=== PATIENT | female | born 1970 | race Caucasian/White ===

== ENCOUNTER → 2022-04-22 | Outpatient (CLI) | payer OTHER ==
--- NOTE | 2022-04-24 07:53 | XR ---
EXAMINATION TYPE: XR chest 2V DATE OF EXAM: 04/22/2022 COMPARISON: NONE HISTORY: Shortness of breath TECHNIQUE: Frontal and lateral views of the chest are obtained. FINDINGS: Scattered senescent parenchymal changes noted. No evidence for infiltrate. No evidence for atelectasis. There is evidence of cardiomegaly with pulmonary venous congestion. No overt congestive failure. Ster notomy wires are in place. Mediastinal structures are stable and grossly unremarkable. No evidence for hilar prominence. Degenerative changes dorsal spine. IMPRESSION: 1. There is evidence of cardiomegaly with pulmonary venous congestion. No overt congestive failure.
== END | disposition home or self-care (01) ==
LOC: RADXRMAIN 13:31
PROVIDERS: ATTEND Family Medicine
DX: I51.7 Cardiomegaly (principal); R05.3 Chronic cough
CPT/HCPCS: 71046

== ENCOUNTER → 2022-05-06 | Outpatient (CLI) | payer OTHER ==
--- NOTE | 2022-05-06 16:56 | CA ---
Transthoracic Echo Report Name: Shanta Owens Age: 52 Gender: F : 1970 Exam Date: 05/06/2022 14:40 Exam Location: [facility] Ht (in): 68 Wt (lb): 314 Ordering Physician: Alexis Millan DO Attending/Referring Phys: In Store Marketer Salina Morrison RDCS Procedure CPT: Indications: I51.7 Cardiomegaly Cardiac Hx: Technical Quality: Technically difficult study Contrast 1: Lumason Total Dose (mL): 4 Contrast 2: Total Dose (mL): MEASUREMENTS (Male / Female) Normal Values 2D ECHO LV Diastolic Diameter PLAX 5.6 cm 4.2 - 5.9 / 3.9 - 5.3 cm LV Systolic Diameter PLAX 3.4 cm IVS Diastolic Thickness 1.0 cm 0.6 - 1.0 / 0.6 - 0.9 cm LVPW Diastolic Thickness 1.0 cm 0.6 - 1.0 / 0.6 - 0.9 cm LV Relative Wall Thickness 0.3 RV Internal Dim ED PLAX 3.3 cm LA Systolic Diameter LX 3.5 cm 3.0 - 4.0 / 2.7 - 3.8 cm M-MODE Aortic Root Diameter MM 3.3 cm MV E Point Septal Separation 0.3 cm AV Cusp Separation MM 2.5 cm DOPPLER AV Peak Velocity 190.0 cm/s AV Peak Gradient 14.4 mmHg AV Mean Velocity 132.3 cm/s AV Mean Gradient 7.9 mmHg AV Velocity Time Integral 43.9 cm MV Area PHT 3.9 cm??? Mitral E Point Velocity 127.1 cm/s Mitral A Point Velocity 101.5 cm/s Mitral E to A Ratio 1.3 MV Deceleration Time 193.9 ms TR Peak Velocity 229.0 cm/s TR Peak Gradient 21.0 mmHg Right Ventricular Systolic Press 25.7 mmHg FINDINGS Left Ventricle Left ventricular ejection fraction is estimated at 50-55 %. Mildly increased left ventricular diastolic diameter. Left ventricular wall thickness normal. Right Ventricle Mild right ventricular dilatation. Right ventricular systolic pressure within normal limits. Right Atrium Normal right atrial size. Left Atrium Normal left atrial size. No evidence for an atrial septal defect. Mitral Valve Structurally normal mitral valve. No mitral stenosis, regurgitation or prolapse. Aortic Valve Trileaflet aortic valve. No aortic valve stenosis or regurgitation. Mild gradient on AOV Tricuspid Valve Structurally normal tricuspid valve. Trace to mild tricuspid regurgitation. Pulmonic Valve Pulmonic valve not well visualized. Pericardium Normal pericardium. No pericardial effusion. Aorta Normal size aortic root and proximal ascending aorta. CONCLUSIONS Normal left ventricular systolic function with a mildly dilated left ventricle Mildly dilated right ventricle No significant valvular heart disease Previewed by: Dr. Nick Krueger MD (Electronically Signed) Final Date: 06 May 2022 16:55
== END | disposition home or self-care (01) ==
LOC: RADECHMAIN 14:36
PROVIDERS: ATTEND Family Medicine
DX: I51.7 Cardiomegaly (principal)
CPT/HCPCS: 93306

== ENCOUNTER → 2022-08-12 | Outpatient (CLI) | payer OTHER ==
--- NOTE | 2022-08-12 16:25 | P.SLEEP ---
History of Present Illness DATE: 08/12/2022 CONSULTATION/NEW PATIENT EVALUATION HISTORY OF PRESENT ILLNESS/SLEEP-WAKE EVALUATION: 52-year-old lady had been e valuated in the sleep center for obstructive sleep apnea hypopnea syndrome. Patient has history of obstructive sleep apnea for about 20 years. Results of previous sleep studies are not available. Patient CPAP unit is old. SLEEP SCHEDULE: Usually sleep schedule on weekdays from 10 PM to 7 AM, on weekend from 11 PM to 9 AM. FALLING ASLEEP: Sometimes patient has problems with falling asleep, has TV set in bedroom. DURING SLEEP: Patient wakes up from sleep once while using her CPAP. No history of hypnogogical hallucinations, sleep paralysis, or cataplexy. DURING THE DAY/WAKE STATE: Patient feels sleepiness during the day. [place] sleepiness scale is 6. Patient takes 1 nap at around 2 PM on weekends. PAST MEDICAL HISTORY: Depression, anxiety, acid reflux, hypothyroidism, ALLERGY, bronchitis. PAST SURGICAL HISTORY: Closing of arterial septal defect, tubal ligation. MEDICATIONS: Zoloft 100 mg once a day, rosuvastatin 5 mg once a day, omeprazole 20 mg once a day, cetirizine 10 mg once a day. SOCIAL HISTORY: Negative for smoking, alcohol consumption occasional. FAMILY HISTORY: Heart problems, stroke, snoring, cancer. REVIEW OF SYSTEMS: Snoring, awakenings from sleep. No fevers. No double vision. No recent chest pain. No shortness of breath. No abdominal pain. No bleeding episodes. No blood in urine. No seizure episodes. PHYSICAL EXAMINATION: GENERAL: A pleasant patient without any distress. VITAL SIGNS: BP 116/79, HR 75, RR 18, weight 320.0 pounds, height 5 foot 7-1/2 inches, body mass index 49.3. HEENT: PERRLA, EOMI. Evaluation of oropharynx showed tongue protrudes midline, low position of soft palate Mallampati 3. NECK: Supple. No JVD. Thyroid is not palpable. 18 inches in circumference. LUNGS: Clear to percussion and to auscultation. Good air exchange. No wheezing or rhonchi. HEART: S1, S2 regular. No murmurs, gallops or rubs. ABDOMEN: Soft and nontender. Bowel sounds are present. No organomegaly appreciated. Obese. EXTREMITIES: No clubbing or cyanosis. LEVEL GLASS FORMING MACHINE OPERATOR: Awake, alert, and oriented x3. Cranial nerves 2 to 7 intact. There is no fasciculation or atrophy noted. No focal deficits observed. ASSESSMENT: 1. Obstructive sleep apnea-hypopnea syndrome for about 20 years. Results of sleep studies are not available. Low position of soft palate Mallampati 3, wide neck 18 inches in circumference. Obstructive sleep apnea hypopnea syndrome. 2. Obesity body mass index 49.3. 3. Depression. 4. Anxiety. 5 acid reflux. 6 . ALLERGY, hayfever. 7. Status post surgical correction of atrial septal defect. 8. Status post tubal ligation. 9 . Hyperlipidemia. PLAN: 1. Polysomnography for evaluation of patient's breathing during sleep at the present time. Results of previous sleep studies are not available. 2. CPAP/BiPAP titration if sleep study confirms obstructive sleep apnea- hypopnea syndrome. 3. Preferable position during sleep on the side. 4. No driving if patient feels any sleepiness. Patient is aware of civil and criminal liability for unsafe driving. 5. Sleep hygiene with regular sleep time for at least 7.5-8 hours. 6. Watching and aggressive losing weight. 7. Patient should get new PAP equipment after all necessary testing. Thank you very much for referring this patient for consultation. Sincerely, Jude Seo MD, PhD, FAASM. Diplomat of [place] [employer], Sleep Medicine Board by [place] [employer] [place] [employer] Psychiatric Assistant of [facility] [place] Sleep Note - Sleep Note Sleep Note: Temperature: Pulse Rate: Respiratory Rate: Blood Pressure: SpO2: Height: Weight: BMI: Neck Circumference:
== END ==
LOC: SLEEP 14:33
PROVIDERS: ATTEND Internal Medicine
DX: G47.33 Obstructive sleep apnea (adult) (pediatric) (principal); E66.9 Obesity, unspecified; Z68.42 Body mass index [BMI] 45.0-49.9, adult; F32.A Depression, unspecified; F41.9 Anxiety disorder, unspecified; K21.9 Gastro-esophageal reflux disease without esophagitis; E78.5 Hyperlipidemia, unspecified; Z98.890 Other specified postprocedural states; Z98.51 Tubal ligation status
CPT/HCPCS: 99211

== ENCOUNTER → 2023-03-31 | Outpatient (CLI) | payer OTHER ==
--- NOTE | 2023-03-31 13:40 | P.PN ---
Subjective DATE: 03/31/2023 FOLLOW UP VISIT. Patient with obstructive sleep apnea hypopnea syndrome return to sleep center for follow-up visit. Recently patient had sleep study which documented obstructive sleep apnea hypopnea syndrome. Patient was initiated on PAP therapy and today is first visit after treatment was started. Patient was able to use PAP equipment every night for the whole night. The patient does not have significant problems with the mask, PAP pressure and humidification. [place] sleepiness scale is 4, which is normal. I checked information from PAP unit. PAP unit pressure 7-10, average 9.9 cm H2O. Usage is 97 % for more then 4 hours, average 8.25 hours per night. Leak is 22.5 l/m, which is in acceptable range. Apnea Hypopnea Index is to 0.1, which is normal. MEDICATIONS:1. Zoloft 100 mg once a day 2. , Rosuvastatin 5 mg once a day 3. Omeprazole 20 mg once a day 4. Cetirizine 10 mg once a day During physical exam: GENERAL: A pleasant patient without any distress. VITAL SIGNS: BP 147/93, HR 69, RR 16 , weight 318.4, temperature 98.3, oxygen saturation at room air 97% . HEENT: PERRLA, EOMI.low position of soft palate, Mallapati 3 . NECK: Supple. No JVD. LUNGS: Clear to percussion and to auscultation. Good air exchange. No wheezing or rhonchi. HEART: S1, S2 regular. ABDOMEN: Soft and nontender.[] EXTREMITIES: No clubbing or cyanosis. FIELD LIABILITY GENERALIST: Awake, alert, and oriented x3. No focal deficit. Impressions: 1. Obstructive sleep apnea-hypopnea syndrome. Patient demonstrated great compliance with treatment, benefiting from treatment. 2. Obesity, body mass index around 49. 3. Depression. 4. Anxiety. 5. Acid reflux. 6. History of ALLERGY and hay fever. 7. Status post surgical treatment of atrial septal defect. 8. Hyperlipidemia. Plan: 1. Continue using PAP equipment every night for the whole night. 2. To change air filter at least 1-2 times per month. 3. PAP unit should stay lower then position of the head. 4. Advised patient to remove all remaining water from humidifier canister daily and make it dry after each usage. Refill canister with fresh distilled water before each usage. 5. Sleep hygiene with regular time in bed for at least 8 hours. 6. Precautions related to driving. No driving if feel any sleepiness. 7. I will maintain prescription for PAP supplies including mask, tube, filters. 8. Follow up visit in 6 months or earlier if patient has any problems. 9. Watching and losing weight. Thank you very much for allowing me to participate in the management of your patient. Jude Soe MD, PhD, FAASM. Diplomat of [place] Board [employer], Sleep Medicine Board by [place] [employer] Testing And Regulating Chief of [facility] [place]
== END ==
LOC: 3 N SLEEP 13:06
PROVIDERS: ATTEND Internal Medicine
DX: G47.33 Obstructive sleep apnea (adult) (pediatric) (principal); E66.9 Obesity, unspecified; E78.5 Hyperlipidemia, unspecified; F32.A Depression, unspecified; F41.9 Anxiety disorder, unspecified; K21.9 Gastro-esophageal reflux disease without esophagitis; Z68.42 Body mass index [BMI] 45.0-49.9, adult; Z79.899 Other long term (current) drug therapy; Z99.89 Dependence on other enabling machines and devices; Z98.890 Other specified postprocedural states
CPT/HCPCS: 99212

== ENCOUNTER → 2023-10-07 | Outpatient (CLI) | payer OTHER ==
--- NOTE | 2023-10-07 11:28 | P.PN ---
Subjective DATE: 10/07/2023 FOLLOW UP VISIT. Patient with obstructive sleep apnea hypopnea syndrome return to sleep center for follow-up visit. Information from previous visit have been reviewed. Patient is using PAP equipment every night for the whole night, getting PAP supplies in time. The patient does not have significant problems with the mask, PAP unit and humidification. [place] sleepiness scale is 4. I checked information from PAP unit. PAP unit pressure 7-10, average 10 cm H2O. Usage is 100 % for more then 4 hours, average 8 hours per night. Leak is 24 l/m, which is in acceptable range. Apnea Hypopnea Index is 4.8, which is borderline and increased comparing to the previous visit. Patient never changed her mask. MEDICATIONS:1. Omeprazole 20 mg once a day 2. Rosuvastatin 5 mg once a day 3. Zyrtec 10 mg once a day 4. Sertraline 100 mg once a day 5. Pulmicort During physical exam: GENERAL: A pleasant patient without any distress. VITAL SIGNS: BP 129/79, HR 85, RR 12 , weight 330.6, temperature 98.3, oxygen saturation at room air 97 % . HEENT: PERRLA, EOMI.low position of soft palate, Mallapati 3 . NECK: Supple. No JVD. LUNGS: Clear to percussion and to auscultation. Good air exchange. No wheezing or rhonchi. HEART: S1, S2 regular. ABDOMEN: Soft and nontender. Obese EXTREMITIES: No clubbing or cyanosis. LABOR DELIVERY RN: Awake, alert, and oriented x3. No focal deficit. I increased pressure in CPAP unit to the range 7-12 cm of water. Impressions: 1. Obstructive sleep apnea-hypopnea syndrome. Patient demonstrated great compliance with treatment, benefiting from treatment. 2. Obesity, patient increased weight on 12 pounds, BMI 50.1. 3. History of depression. 4. History of anxiety. 5. Acid reflux. 6. Hyperlipidemia. 7. History of ALLERGY and hay fever. 8. Status post surgical treatment for atrial septal defect. Plan: 1. Continue using PAP equipment every night for the whole night. Patient replace her mask today. 2. To change air filter at least 1-2 times per month. 3. PAP unit should stay lower then position of the head. 4. Advised patient to remove all remaining water from humidifier canister daily and make it dry after each usage. Refill canister with fresh distilled water before each usage. 5. Sleep hygiene with regular time in bed for at least 8 hours. 6. Precautions related to driving. No driving if feel any sleepiness. 7. I will maintain prescription for PAP supplies including mask, tube, filters. 8. Follow up visit in 6 months or earlier if patient has any problems. 9. Watching and losing weight. Thank you very much for allowing me to participate in the management of your patient. Jude Seo MD, PhD, FAASM. Diplomat of [place] [employer] Medicine, Sleep Medicine Board by [place] [employer] Medicine Contact Centre Supervisor of [facility] [place]
== END ==
LOC: 3 N SLEEP 10:51
PROVIDERS: ATTEND Internal Medicine
DX: G47.33 Obstructive sleep apnea (adult) (pediatric) (principal); E66.9 Obesity, unspecified; F32.A Depression, unspecified; F41.9 Anxiety disorder, unspecified; E78.5 Hyperlipidemia, unspecified; K21.9 Gastro-esophageal reflux disease without esophagitis; Z98.890 Other specified postprocedural states; Z99.89 Dependence on other enabling machines and devices; Z86.19 Personal history of other infectious and parasitic diseases; Z68.43 Body mass index [BMI] 50.0-59.9, adult; Z91.09 Other allergy status, other than to drugs and biological substances
CPT/HCPCS: 99212

== ENCOUNTER → 2024-04-26 | Outpatient (CLI) | payer OTHER ==
[2024-04-26 15:18] VITALS: BP 118/81; PULSE 67; RESP 20; TEMP 98.4
--- NOTE | 2024-04-26 15:44 | P.PROGSL ---
Subjective DATE: 04/26/2024 FOLLOW UP VISIT. Patient with obstructive sleep apnea hypopnea syndrome return to sleep center for follow-up visit. Information from previous visit have been reviewed. Patient is using PAP equipment every night for the whole night, getting PAP supplies in time. The patient does not have significant problems with the mask, PAP unit and humidification. [place] sleepiness scale is 5, which is normal. I checked information from PAP unit. PAP unit pressure 7-12, average 11.6 cm H2O. Usage is 100% for more then 4 hours, average 8.25 hours per night. Leak is significantly increased to 44.0 l/m. Apnea Hypopnea Index is 2.6, which is normal. MEDICATIONS sertraline 100 mg once a day, rosuvastatin 5 mg once a day, omepraz ole 20 mg once a day. During physical exam: GENERAL: A pleasant patient without any distress. VITAL SIGNS: Please see below, weight is 325.8 lbs. HEENT: PERRLA, EOMI.low position of soft palate, Mallapati 3. NECK: Supple. No JVD. LUNGS: Clear to percussion and to auscultation. Good air exchange. No wheezing or rhonchi. HEART: S1, S2 regular. ABDOMEN: Soft and nontender, obese EXTREMITIES: No clubbing or cyanosis. STOCK HANGER: Awake, alert, and oriented x3. No focal deficit. Impressions: 1. Obstructive sleep apnea-hypopnea syndrome. Patient demonstrated great compliance with treatment, benefiting from treatment. 2. Obesity, BMI 50.1, patient lost 5 pounds comparing with previous visit. 3. History of anxiety. 4. History of depression. 5. Status post surgical treatment for atrial septal defect. 6. Hyperlipidemia. 7. Acid reflux. 8. History of allergies and hayfever. Plan: 1. Continue using PAP equipment every night for the whole night. 2. Sleep hygiene with regular time in bed for at least 7.5-8 hours 3. PAP unit should stay lower then position of the head. 4. Advised patient to remove all remaining water from humidifier canister daily and make it dry after each usage. Refill canister with fresh distilled water before each usage. 5. Watching and losing weight. 6. Precautions related to driving. No driving if feel any sleepiness. 7. I will maintain prescription for PAP supplies including mask, tube, filters. 8. Follow up visit in 6 months or earlier if patient has any problems. Thank you very much for allowing me to participate in the management of your patient. Jude Seo MD, PhD, FAASM. Diplomat of [place] [employer] Medicine, Sleep Medicine Board by [place] [employer] Medicine Customer Service Dispatcher of [facility] [place] Objective - Vital Signs Vital Signs: Vital Signs Temp 98.4 F 04/26/24 15:17 Pulse 67 04/26/24 15:17 Resp 20 04/26/24 15:17 BP 118/81 04/26/24 15:17 Pulse Ox 96 04/26/24 15:17 FiO2 Intake & Output 04/25/24 04/26/24 04/26/24 18:59 06:59 18:59 Weight 147.644 kg
== END ==
LOC: 3 N SLEEP 15:02
PROVIDERS: ATTEND Internal Medicine
CPT/HCPCS: 99212

== ENCOUNTER → 2024-05-02 | Outpatient (CLI) | payer OTHER | LOC: CPPFTMAIN 10:32 | PROVIDERS: ATTEND Family Medicine | DX: R05.3 Chronic cough (principal) | CPT/HCPCS: 94060; 94726; 94729 ==

== ENCOUNTER → 2024-11-22 | Outpatient (CLI) | payer OTHER ==
[2024-11-22 11:59] VITALS: BP 136/92; PULSE 71; RESP 16; TEMP 97.9
--- NOTE | 2024-11-22 12:23 | P.PROGSL ---
Subjective DATE: 11/22/2024 FOLLOW UP VISIT. Patient with obstructive sleep apnea hypopnea syndrome return to sleep center for follow-up visit. Information from previous visit have been reviewed. Patient is using PAP equipment every night for the whole night, getting PAP supplies in time. The patient does not have significant problems with the mask, PAP unit and humidification. [place] sleepiness scale is 5, which is normal. I checked information from PAP unit. PAP unit pressure 7-12, average 11.7 cm H2O. Usage is 100% for more then 4 hours, average 7.5 hours per night. Leak is increased to 34.6 l/m. Apnea Hypopnea Index is 1.6, which is normal. MEDICATIONS have been reviewed, please see below. During physical exam: GENERAL: A pleasant patient without any distress. VITAL SIGNS: Please see below, weight is 322.2 lbs. HEENT: PERRLA, EOMI.low position of soft palate, Mallapati 3. NECK: Supple. No JVD. LUNGS: Clear to percussion and to auscultation. Good air exchange. No wheezing or rhonchi. HEART: S1, S2 regular. ABDOMEN: Soft and nontender. Obese EXTREMITIES: No clubbing or cyanosis. CENTER HUMAN RESOURCES MANAGER: Awake, alert, and oriented x3. No focal deficit. Impressions: 1. Obstructive sleep apnea-hypopnea syndrome. Patient demonstrated great compliance with treatment, benefiting from treatment. 2. Obesity, BMI 50.4, patient lost 3 pounds comparing with previous visit. 3. History of anxiety. 4. History of depression. 5. Status post surgical treatment for atrial septal defect. 6. Allergy to cats and history of hayfever. 7. Hyperlipidemia. 8. Acid reflux. Plan: 1. Continue using PAP equipment every night for the whole night. 2. Sleep hygiene with regular time in bed for at least 7.5-8 hours 3. PAP unit should stay lower then position of the head. 4. Advised patient to remove all remaining water from humidifier canister daily and make it dry after each usage. Refill canister with fresh distilled water before each usage. 5. Watching and continue losing weight. 6. Precautions related to driving. No driving if feel any sleepiness. 7. I will maintain prescription for PAP supplies including mask, tube, filters. 8. Follow up visit in 8 months or earlier if patient has any problems. Thank you very much for allowing me to participate in the management of your patient. Jude Seo MD, PhD, FAASM. Diplomat of [place] [employer] Sleep Medicine, Sleep Medicine Board by [place] [employer] Medicine Fisher Sponge Hooking of [facility] [place] Objective - Vital Signs Vital Signs: Vital Signs Temp 97.9 F 11/22/24 11:57 Pulse 71 11/22/24 11:57 Resp 16 11/22/24 11:57 BP 136/92 11/22/24 11:57 Pulse Ox 95 11/22/24 11:57 FiO2 Intake & Output 11/21/24 11/22/24 11/22/24 18:59 06:59 18:59 Weight 146.113 kg Home Medications: Home Medications Medication Instructions Recorded Confirmed Type Cetirizine HCl [Zyrtec] 10 mg PO DAILY 11/22/24 11/22/24 History Lisdexamfetamine Dimesylate 70 mg PO DAILY 11/22/24 11/22/24 History Omeprazole 20 mg PO DAILY 11/22/24 11/22/24 History Rosuvastatin [Crestor] 5 mg PO DAILY 11/22/24 11/22/24 History Sertraline [Zoloft] 100 mg PO DAILY 11/22/24 11/22/24 History
== END ==
LOC: 3 N SLEEP 11:40
PROVIDERS: ATTEND Internal Medicine
DX: G47.33 Obstructive sleep apnea (adult) (pediatric) (principal); E66.01 Morbid (severe) obesity due to excess calories; F41.9 Anxiety disorder, unspecified; E78.5 Hyperlipidemia, unspecified; K21.9 Gastro-esophageal reflux disease without esophagitis; F32.A Depression, unspecified; Q21.10 Atrial septal defect, unspecified; J30.81 Allergic rhinitis due to animal (cat) (dog) hair and dander; Z68.43 Body mass index [BMI] 50.0-59.9, adult
CPT/HCPCS: 99212

== ENCOUNTER → 2025-02-23 | Day surgery (SDC) | payer OTHER ==
[2025-02-22 10:32] VITALS: BMI 48.9
[~2025-02-23] MED LIST: PROPOFOL 10 MG/ML 20 ML VIAL IV ONE
[2025-02-23 11:58] VITALS: RESP 16
[2025-02-23] MEDS: IV FLUID CONTINUATION 1,000 ML IV ONE (12:03)
[2025-02-23] MEDS: LACTATED RINGERS 1,000 ML IV SCH (12:05)
[2025-02-23 12:07] VITALS: TEMP 97.6
--- NOTE | 2025-02-23 13:02 | P.PCN ---
Date of Procedure: 02/23/25 Procedure(s) Performed: BRIEF HISTORY: Patient is a 54-year-old pleasant white female scheduled for an elective colonoscopy as a part of screening for colon cancer. PROCEDURE PERFORMED: Colonoscopy with biopsy. PREOPERATIVE DIAGNOSIS: Screening for colon cancer. IV sedation per Anesthesia. PROCEDURE: After informed consent was obtained, the patient, was brought into the endoscopy unit. IV sedation was administered by Anesthesia under continuous monitoring. Digital rectal examination was normal. Initially the Olympus CF-160 flexible video colonoscope was then inserted in the rectum, gradually advanced into the cecum without any difficulty. Careful examination was performed as the scope was gradually being withdrawn. Ileocecal valve and the appendiceal orifice were visualized and appeared normal. Prep was excellent. Mucosa of the cecum, ascending colon, transverse colon, descending colon, appeared normal. In the proximal sigmoid colon there was a 4 mm sessile polyp removed by cold biopsy. Rest of the sigmoid colon, and rectum appeared normal. Retroflexion was performed in the rectum and no lesions were seen. The patient tolerated the procedure well. IMPRESSION: 4 mm sigmoid colon polyp status post cold biopsy. Rest of the colon appeared normal. RECOMMENDATIONS: Findings of this examination were discussed with the patient as well as the family.. She was advised to follow-up with the biopsy results. If the biopsy was adenomatous can have repeat colonoscopy in 5 years.
[2025-02-23 13:18] VITALS: BP 127/65; PULSE 62
== END ==
LOC: ORWHC2ENDO 10:45
PROVIDERS: ATTEND Internal Medicine Gastroenterology
DX: Z12.11 Encounter for screening for malignant neoplasm of colon (principal); D12.5 Benign neoplasm of sigmoid colon; K21.9 Gastro-esophageal reflux disease without esophagitis; J45.909 Unspecified asthma, uncomplicated; E78.5 Hyperlipidemia, unspecified; E66.9 Obesity, unspecified; F41.9 Anxiety disorder, unspecified; F32.A Depression, unspecified; G47.33 Obstructive sleep apnea (adult) (pediatric); Q21.10 Atrial septal defect, unspecified; Z68.42 Body mass index [BMI] 45.0-49.9, adult; Z88.7 Allergy status to serum and vaccine; Z99.89 Dependence on other enabling machines and devices; Z79.899 Other long term (current) drug therapy
CPT/HCPCS: 88305; 45380; J2704

== ENCOUNTER → 2025-03-05 | Outpatient (CLI) | payer OTHER ==
--- NOTE | 2025-03-05 08:00 | MM ---
Reason for Exam: Screening (asymptomatic). Last mammogram was performed 2 year(s) and 5 month(s) ago. Patient History: Menarche at age 13. First Full-Term at age 22. Postmenopausal. Patient has history of breast feeding. Paternal aunt had breast cancer at or over age 50. Risk Values: Amalia 5 year model risk: 1.0%. NCI Lifetime model risk: 7.5%. Prior Study Comparison: 09/09/2017 Bilateral MG screening mammo w CAD - 2, [facility]. 01/18/2021 Bilateral MG screening mammo w CAD - 2, [facility]. 10/12/2022 Bilateral MG screening mammo w CAD, [facility]. 10/27/2022 Left MG work up mamm w CAD , [facility]. Tissue Density: The breasts are heterogeneously dense, which may obscure small masses. Findings: Analyzed By CAD. Right breast: There is no suspicious group of microcalcifications or new suspicious mass. Left breast: There is no suspicious group of microcalcifications or new suspicious mass. Overall Assessment: Negative, BI-RAD 1 Management: Screening Mammogram of both breasts in [address] [facility] will attempt to contact patient to return for supplemental views and ultrasound if indicated. Patient should continue monthly self-breast exams. A clinical breast exam by your physician is recommended on an annual basis. This exam should not preclude additional follow-up of suspicious palpable abnormalities. Note on Amalia scores and lifetime risk: 1. A Amalia score greater than 3% is considered moderate risk. If this is the case, consider specialist referral to assess eligibility for a risk reducing agent. 2. If overall lifetime risk for the development of breast cancer is 20% or higher, the patient may qualify for future screening with alternating mammogram and breast MRI. [facility], , 03/05/2025 7:57 AM. Electronically signed and approved by: Lizandro Holley DO
== END | disposition home or self-care (01) ==
LOC: RADMAMWWP 06:54
PROVIDERS: ATTEND Family Medicine
DX: Z12.31 Encounter for screening mammogram for malignant neoplasm of breast (principal); R92.333 Mammographic heterogeneous density, bilateral breasts; Z78.0 Asymptomatic menopausal state; Z80.3 Family history of malignant neoplasm of breast
CPT/HCPCS: 77067